=== PATIENT | male | born 1950 | race Caucasian/White ===

== ENCOUNTER 2022-03-29 04:31 | Inpatient (IN) | payer OTHER, SELFPAY ==
[2022-03-29 04:42] VITALS: BP 146/78; PULSE 77; RESP 16; TEMP 36.9; O2SAT 95
--- NOTE | 2022-03-29 05:11 | ED_ITS ---
HPI - General Adult General Date Seen: 03/29/22 Chief complaint: Abdominal Pain Stated complaint: Bowel obstruction Time Seen by Provider: 03/29/22 04:55 History of Present Illness HPI narrative: Patient is a 71-year-old male who began having abdominal pain yesterday. He has had numerous previous small-bowel obstructions in occluding two in the last 12 months. He presented to the hospital in [place] where he was fully evaluated. He required morphine for pain and had an NG-tube placed with over 1000 mL of fluid removed. He also received Zofran for nausea. There were no beds available in [place] or anywhere else in the [facility] so ER physician contacted our [facility] and we made arrangements to accept him in an ER to ER transfer for admission here. He had a negative COVID test. He has had no fevers or chills. There has been no black or bloody stools. No blood in his NG returns. He has had no cough, chest pain, shortness of breath. He has never required surgical treatment for his bowel obstructions. He has had previous chemotherapy and radiation therapy for his colon cancer. Home medications include Colace 100 mg q.h.s., Protonix 40 mg daily, sertraline 100 mg daily, Flomax 0.4 mg daily, trazodone 50 mg q.h.s., combigan eyedrops. Review of Systems Narrative: Review of systems is outlined above otherwise noted to be negative. [facility] Medical History (Updated 03/29/22 @ 05:26 by Kingsley Torres MD) Bladder cancer Generalized anxiety disorder Major depression, recurrent Nicotine dependence Radiation proctitis Rectal adenocarcinoma Recurrent kidney stones Surgical History (Updated 03/29/22 @ 05:10 by Kingsley Torres MD) History of colostomy History of urostomy Family History (Updated 03/29/22 @ 05:08 by Kingsley Torres MD) Father Prostate cancer Breast cancer Mother Alcohol dependence Drug dependence Liver disease Sister Pancreatic cancer Breast cancer Social History (Updated 03/29/22 @ 05:05 by Kingsley Torres MD) Narrative: , retired, smoker, no EtOH Smoking Status: Current every day smoker What tobacco products do you use: cigarettes Do you use any of these nicotine containing products: None Second hand tobacco smoke exposure: No Non-prescribed substance use: denies use service: No Exam Narrative: Exam Narrative: Vitals noted. I did re-examine him and confirmed his physical exam findings. His mouth is dry. NG tube is in place with continued returns. Heart is regular rate rhythm without murmur. Lungs are diminished but clear. No wheezes, rales, rhonchi. Abdomen is soft and silent. Mild diffuse tenderness but no guarding, rigidity, rebound. There is a colostomy present in the left lower quadrant. No pitting peripheral edema. No skin rashes. Const: Vital Signs, click to edit/add: Vital Signs - 24 hr 03/29/22 04:42 Temperature 98.4 F Pulse Rate [Left P ulse Oximeter] 77 Respiratory Rate 16 Blood Pressure [Ri ght Upper Arm] 146/78 H Pulse Oximetry 95 Oxygen Delivery Me thod Room Air Course Course Hospital Course: Patient is seen and evaluated. I did not repeat any diagnostic testing. Will contact [facility] for admission for IV fluids, bowel rest, NG suctioning, conserva tive care. Vital Signs Vital signs: Initial Vital Signs Temperature 98.4 F 03/29/22 04:42 Temperature Source Temporal Artery Scan 03/29/22 04:42 Pulse Rate 77 03/29/22 04:42 Respiratory Rate 16 03/29/22 04:42 Blood Pressure 146/78 H 03/29/22 04:42 Blood Pressure Mean 100 03/29/22 04:42 Blood Pressure Position Semi-Fowlers 03/29/22 04:42 Pulse Oximetry 95 03/29/22 04:42 Oxygen Delivery Method 03/29/22 04:42 Vital Signs Temperature 98.4 F 03/29/22 04:42 Pulse Rate 77 03/29/22 04:42 Respiratory Rate 16 03/29/22 04:42 Blood Pressure 146/78 H 03/29/22 04:42 Pulse Oximetry 95 03/29/22 04:42 Oxygen Delivery Method 03/29/22 04:42 Temperature 98.4 F 03/29/22 04:42 Pulse Rate 77 03/29/22 04:42 Respiratory Rate 16 03/29/22 04:42 Blood Pressure 146/78 H 03/29/22 04:42 Pulse Oximetry 95 03/29/22 04:42 Oxygen Delivery Method 03/29/22 04:42 Medical Decision Making Lab Data Labs: CBC shows a hemoglobin of 16, platelet count 296, white blood count 03479. CMP shows a potassium 4.4, sodium 130, chloride 100, bicarb 23, BUN 19, creatinine 1.0, calcium 10.3, glucose 131. LFTs are normal an ALT 14, AST 28, bilirubin 0.6, albumin 4.8. Lactate initially was 2.3. COVID negative. Diagnostics: CT of the abdomen with IV contrast shows findings of small-bowel obstruction with numerous dilated loops of small bowel with air-fluid levels, distension of the stomach, transition point in the pelvis, no perforation. CT angiogram of the chest is negative for pulmonary embolism. X-ray of the abdomen shows good position of the NG tube. Discharge Plan Discharge Clinical Impression: Small bowel obstruction Patient Disposition: Admitted As Inpatient Condition: Stable Follow Up/Referrals: Provider,Not a Local [Primary Care Provider] -
--- NOTE | 2022-03-29 05:59 | W.PC.EDHO ---
Primary Language: Preferred Language: Orientation Status: [x] Alert & Oriented [] Slight Confusion [] Known Dx Dementia Transfers By: [x] Assist of 1 [] Assist of 2 [] Lift Description of Symptoms ED Triage Present Problem Patient arrives via [facility] as an ER to ER Description transfer from [facility]. Patient has been transferred for admission to [facility] d/t SBO. Patient has h/o approx. 8 bowel obstructions in 2021. Patient has h/o colorectal ca and also has an ostomy placed. Patient is drowsy but awakens easily to voice. Patient c/o 5/10 pain. Patient has NG placed that was locked during transport. 250cc dark brown output into suction canister upon arrival to ED. 20g SL placed in L a/c by EMS. ED Triage Date of Onset of 03/28/22 Symptoms Female History Patient No Pain Pain Intensity [Abdomen] 5 Pain Intensity [Abdomen] 5 Pain Intensity 5 Pain Scale Used [Abdomen] Numeric (1 - 10) Pain Scale Used [Abdomen] Numeric (1 - 10) Pain Scale Used Numeric (1 - 10) IV Insertion/Site Date of IV Line Insertion [ 03/29/22 Antecubital] Oxygen Administration Pulse Oximetry 95 Oxygen Delivery Method Room Air
--- NOTE | 2022-03-29 06:00 | ED.NURSE ---
Report to HERMELINDA Arnold
[2022-03-29 06:35] VITALS: RESP 16; TEMP 36.7; O2SAT 95; BMI 18.9
--- NOTE | 2022-03-29 06:42 | PM.IMCN1 ---
Date of Consult Consult date: 03/29/22 Primary Care Provider: Not a Local Provider Consult Narrative Narrative: aMthieu Tate Hospitalist ADMISSION SUPPORT NOTE eHospitalist was contacted by Dr. Torres with request of admission support. Chief complaint: Abdominal pain and vomiting HPI: The patient presents as a transfer from the outlying facility with bowel obstruction. He reports that 2 PM on afternoon he started developing abdominal pain. He has had multiple small bowel obstructions in the past and try conservative management cutting back on eating however reports that the pain was severe. The pain was generalized in his abdomen due to radiated to his back and was sharp in his abdomen but dull in his back. Currently pain is 5/[address] scan of abdomen and pelvis reveals small bowel obstruction with distal point in the pelvis. Per report after NG tube was placed there was at least 1 L of gastric content removed and suctioning. Review of systems other than mentioned above is negative. Medications/Pertinent Medical History/Pertinent Social History: Reveiwed see EMR for details Review of Systems Status of ROS: Reports: 10 or more systems reviewed and unremarkable except as noted in History and below PFSH PFS Medical History (Updated 03/29/22 @ 05:26 by Kingsley Torres MD) Bladder cancer Generalized anxiety disorder Major depression, recurrent Nicotine dependence Radiation proctitis Rectal adenocarcinoma Recurrent kidney stones Surgical History (Updated 03/29/22 @ 05:10 by Kingsley Torres MD) History of colostomy History of urostomy Family History (Updated 03/29/22 @ 05:08 by Kingsley Torres MD) Father Prostate cancer Breast cancer Mother Alcohol dependence Drug dependence Liver disease Sister Pancreatic cancer Breast cancer Social History (Updated 03/29/22 @ 05:05 by Kingsley Torres MD) Narrative: , retired, smoker, no EtOH Smoking Status: Current every day smoker What tobacco products do you use: cigarettes Do you use any of these nicotine containing products: None Second hand tobacco smoke exposure: No Non-prescribed substance use: denies use service: No Meds Home Medications and Allergies Allergies Allergy/AdvReac Type Severity Reaction Status Date / Time No Known Drug Allergies Allergy Verified 03/29/22 05:58 Exam Narrative: Exam Narrative: Exam (performed via interactive video with assistance of bedside nurse): General: Alert, cooperative, no acute distress, thin HEENT: Oral mucosa pink and moist without erythema, ngt in nare Lungs: Clear to auscultation bilaterally without crackle or wheeze CV: Regular rate and rhythm without loud murmur rub or gallop Abd: Bowel sounds hypoactive, does exhibit signs of pain with palpation in RLQ done by bedside nurse, LLQ ostomy Ext: No pitting edema noted Skin: No rashes, bruises or lesions appreciated on gross visualization of exposed skin Neuro: Alert, oriented x 3. CN III -VII, XI, XII grossly intact, moves all extremities without any significant focal deficit appreciated by nurse Const: Vital Signs, click to edit/add: Vital Signs - 24 hr 03/29/22 04:42 Temperature 98.4 F Pulse Rate [Left P ulse Oximeter] 77 Respiratory Rate 16 Blood Pressure [Ri ght Upper Arm] 146/78 H Pulse Oximetry 95 Oxygen Delivery Me thod Room Air Assessment and Plan Assessment and plan (1) Small bowel obstruction: Status: Acute Plan Recent lab/CT scan of abdomen and pelvis/CTA of chest: Reviewed see EMR for details Assessment and Plan: 1. Small Bowel Obstruction-supportive care. NG tube to suction low intermittent, pain meds and antiemetics 2. Depression and anxiety-stable monitor 3. Smoking Habituation-nicotine patch 4. DVT prophylaxis-Lovenox 5. CODE STATUS Full Code per documentation Chart review was performed as well as evaluation of the patient via video. Thank you for involving ehospitalist. Please contact [phone] if further assistance is needed.
--- NOTE | 2022-03-29 07:44 | PC.NURSE ---
Pt alert and oriented x3, pleasant and cooperative. Afebrile. Pt reports pain in right shoulder, managed with PRN Oxycodone and scheduled Tylenol. Pt denies chest pain, and SOB. Pt reported nausea with some dry heaving, nausea was managed with PRN Zofran, but it was not effective. MD was updated, MD ordered PRN Compazine. Pt reported feeling better after receiving the Compazine.??Pt right shoulder dressing?is CDI but pt has black and purple bruise around and below the surgical site?that was outlined around 0230, the bruise has not exceeded outline during rest of shift. Pt is SBA with gait belt?to the bathroom. Pt was saline locked at 0500. Pt has had water and crackers and has been tolerating them with no nausea. ??
[2022-03-29 11:00] VITALS: BP 139/73; RESP 16; TEMP 36.8; O2SAT 93
[2022-03-29] MEDS: SODIUM CHLORIDE 0.9 % (FLUSH) 10 ML SYRINGE 5 ML IVF (11:28)
[2022-03-29] MEDS: LACTATED RINGERS 1000 ML 500 ML IV (11:29)
[2022-03-29] MEDS: MORPHINE 2 MG/ML inj IVP (11:37)
[2022-03-29 12:25] LABS: Lactate* 1.5 mmol/L (0.5-1.9)
[2022-03-29 12:28] LABS: Basophils Percent Auto 0.1 % (0.0-3.0); Eosinophils Percent Auto 0.1 % (0.0-7.0); Hematocrit 45.6 % (37.0-53.0); Hemoglobin* 15.4 gm/dL (13.5-17.5); Immature Granulocytes Pct Auto 0.1 %; Lymphocytes Percent Auto 8.6 % (20-44); Mean Corpuscular HGB Conc 34 gm/dL (32-36); Mean Corpuscular Hemoglobin 32 pg (26-34); Mean Corpuscular Volume 94 fL (80-100); Monocytes Percent Auto 6.3 % (0.0-11.0); Neutrophils Percent Auto 84.8 % (42.0-72.0); Platelet Count* 284 K/uL (140-440); Red Blood Count 4.84 m/uL (4.30-5.90); Slide Review Reflex No; White Blood Count* 14.59 K/uL (4.50-11.00)
[2022-03-29 12:53] LABS: Chloride* 105 mmol/L (96-114)
[2022-03-29 12:54] LABS: Potassium* 4.5 mmol/L (3.6-5.1); Sodium* 139 mmol/L (135-149)
[2022-03-29 12:56] LABS: Est. Creatinine Clearance* 57.94; Estimated Glomerular Filt Rate 81 ml/min
[2022-03-29 12:57] LABS: Alanine Aminotransferase* 17 U/L (4-50); Alkaline Phosphatase* 57 U/L (40-150); Aspartate Amino Transferase* 25 U/L (12-35); Bilirubin Total* 0.8 mg/dL (0.1-1.5); Blood Urea Nitrogen* 29 mg/dL (7-30); Calcium* 9.2 mg/dL (8.4-10.6); Carbon Dioxide* 29 mmol/L (20-32); Glucose* 121 mg/dL (60-115); Lipase* 20 U/L (23-300); Total Protein* 6.6 g/dL (6.0-8.3)
[2022-03-29 13:00] LABS: C Reactive Protein* 3.3 mg/dL (0.5-1.0)
--- NOTE | 2022-03-29 14:33 | P.GSCN_ITS ---
History of Present Illness Consult details Date Seen: 03/29/22 Consult date: 03/29/22 Narrative: The patient is a 71-year-old male with a history of rectal cancer status post abdominal perineal resection and pelvic radiation, bladder cancer status post transurethral resection, with a history of multiple small-bowel obstructions. The patient states that he presented to the [place] [facility] last evening because he developed fever, abdominal pain, and was unable to walk. Additionally, he was vomiting. There, a CT scan showed a right inguinal hernia as well as a small-bowel obstruction with transition port in the pelvis. An NG was placed in the emergency department and 1 L of fluid returned. He has been treated extensively within the [place] system and has been hospitalized in [place] before. There were no beds available to admit him and he was sent to [place]. He is still having some abdominal pain, but he is improved. Denies any groin pain. He has had approximately 15 bowel obstructions since his surgery. He states that 2 weeks ago he had similar symptoms but he was able to get past it on his own by limiting his diet and only drinking water. He is thirsty. The patient's surgical history is as follows: Workup for constipation and weight loss in 2018 revealed a mass near the bladder and involving the rectum. Colonoscopy revealed a rectal cancer 6 cm from the anal verge. He then underwent neoadjuvant radiation and chemotherapy and in 2018 and abdominal perineal resection. He developed a herniation at his perineal site and underwent repair a year later in 2019. This was done with mesh and an a pedicled omental flap. He has also had multiple cystoscopies and what sounds like a trans urethral bladder tumor resection. There was some question as to whether not he had a urostomy, however I do not see this on clinical exam nor in his records. He has had multiple cystoscopies as well as retrograde pyelograms for kidney stones as well as surveillance of this bladder tumor that was resected. [facility] Medical History (Updated 03/29/22 @ 14:39 by Buffy Escobar MD) Bladder cancer Generalized anxiety disorder Major depression, recurrent Nicotine dependence Pelvic irradiation Perineal hernia Radiation proctitis Rectal adenocarcinoma Recurrent kidney stones Surgical History (Updated 03/29/22 @ 14:39 by Buffy Escobar MD) H/O left knee surgery H/O lithotripsy H/O transurethral resection of bladder tumor (TURBT) History of colostomy S/P cystoscopy with ureteral stent placement Status post robot-assisted surgical procedure Family History (Updated 03/29/22 @ 05:08 by Kingsley Torres MD) Father Prostate cancer Breast cancer Mother Alcohol dependence Drug dependence Liver disease Sister Pancreatic cancer Breast cancer Social History (Updated 03/29/22 @ 05:05 by Kingsley Torres MD) Narrative: , retired, smoker, no EtOH Smoking Status: Current every day smoker What tobacco products do you use: cigarettes Smoking packs per day: 0.5 Smoking cigarettes per day: 10.0 Do you use any of these nicotine containing products: None Second hand tobacco smoke exposure: No How often do you have a drink containing alcohol: never AUDIT-C Alcohol total score: 0 Non-prescribed substance use: denies use Caffeine: Yes service: No Meds Home Medications and Allergies Home Medications Medication Instructions Recorded Confirmed Type acetaminophen 500 mg tablet 1,000 mg PO Q6H PRN 03/29/22 03/29/22 History brimonidine 0.2 %-timolol 0.5 % 1 drp ophthalmic (eye) DAILY 03/29/22 03/29/22 History eye drops (Combigan) docusate sodium 100 mg capsule 100 mg PO QHS 03/29/22 03/29/22 History (DOK) pantoprazole 40 mg tablet,delayed 40 mg PO DAILY 03/29/22 03/29/22 History release sertraline 100 mg tablet 100 mg PO DAILY 03/29/22 03/29/22 History tamsulosin 0.4 mg capsule 0.4 mg PO DAILY 03/29/22 03/29/22 History trazodone 50 mg tablet 50 mg PO HS 03/29/22 03/29/22 History Allergies Allergy/AdvReac Type Severity Reaction Status Date / Time bee venom protein (honey bee) AdvReac Unknown Verified 03/29/22 07:42 heprin AdvReac Unknown Uncoded 03/29/22 07:42 Exam Narrative: Exam Narrative: General appearance: Alert, cooperative, and in no distress HENT: NG in place with reddish fluid Pulmonary: Breathing nonlabored on room air Cardiovascular Heart: Regular rate and rhythm Gastrointestinal Abdominal: Mildly distended. No significant tenderness. No gas or stool in stoma bag. Stoma is patent past the fascia on digital exam. : Unable to palpate a hernia in the right groin or femoral region. Patient was not tender before the exam but was somewhat tender after the exam. Musculoskeletal: Extremities: Upper: Both upper extremities have normal joint range of motion and inta ct strength. Lower: Both lower extremities have normal joint range of motion and intact strength. Skin: Normal skin color, texture, and turgor. No rashes or lesions. Neurologic: No focal deficits Psychiatric: Alert, oriented, cooperative, normal affect. Const: Vital Signs, click to edit/add: Vital Signs - 24 hr 03/29/22 04:42 03/29/22 06:35 03/29/22 06:35 Temperature 98.4 F 98.1 F Pulse Rate [Left P ulse Oximeter] 77 Respiratory Rate 16 16 16 Blood Pressure [Ri ght Arm] Blood Pressure [Ri ght Upper Arm] 146/78 H Pulse Oximetry 95 95 95 Oxygen Delivery Me thod Room Air Room Air Room Air 03/29/22 11:00 Temperature 98.2 F Pulse Rate [Left P ulse Oximeter] Respiratory Rate 16 Blood Pressure [Ri ght Arm] 139/73 Blood Pressure [Ri ght Upper Arm] Pulse Oximetry 93 Oxygen Delivery Me thod Room Air Results Labs Labs: Abnormal lab results 03/29/22 03/29/22 Range/Units 12:13 12:13 WBC 14.59 H (4.50-11.00) K/uL Neut % (Auto) 84.8 H (42.0-72.0) % Lymph % (Auto) 8.6 L (20-44) % Neut # (Auto) 12.40 H (1.7-7.0) K/uL Glucose 121 H (60-115) mg/dL C-Reactive Protein 3.3 H (0.5-1.0) mg/dL Lipase 20 L (23-300) U/L Diabetes panel 03/29/22 Range/Units 12:13 Sodium 139 (135-149) mmol/L Potassium 4.5 (3.6-5.1) mmol/L Chloride 105 (96-114) mmol/L Carbon Dioxide 29 (20-32) mmol/L BUN 29 (7-30) mg/dL Creatinine 1.0 (0.5-1.5) mg/dL Glucose 121 H (60-115) mg/dL Calcium 9.2 (8.4-10.6) mg/dL AST 25 (12-35) U/L ALT 17 (4-50) U/L Alkaline Phosphatase 57 (40-150) U/L Total Protein 6.6 (6.0-8.3) g/dL Albumin 4.0 (3.3-5.0) g/dL Calcium panel 03/29/22 Range/Units 12:13 Calcium 9.2 (8.4-10.6) mg/dL Albumin 4.0 (3.3-5.0) g/dL Pituitary panel 03/29/22 Range/Units 12:13 Sodium 139 (135-149) mmol/L Potassium 4.5 (3.6-5.1) mmol/L Chloride 105 (96-114) mmol/L Carbon Dioxide 29 (20-32) mmol/L BUN 29 (7-30) mg/dL Creatinine 1.0 (0.5-1.5) mg/dL Glucose 121 H (60-115) mg/dL Calcium 9.2 (8.4-10.6) mg/dL Adrenal panel 03/29/22 Range/Units 12:13 Sodium 139 (135-149) mmol/L Potassium 4.5 (3.6-5.1) mmol/L Chloride 105 (96-114) mmol/L Carbon Dioxide 29 (20-32) mmol/L BUN 29 (7-30) mg/dL Creatinine 1.0 (0.5-1.5) mg/dL Glucose 121 H (60-115) mg/dL Calcium 9.2 (8.4-10.6) mg/dL Total Bilirubin 0.8 (0.1-1.5) mg/dL AST 25 (12-35) U/L ALT 17 (4-50) U/L Alkaline Phosphatase 57 (40-150) U/L Total Protein 6.6 (6.0-8.3) g/dL Albumin 4.0 (3.3-5.0) g/dL All other labs normal. Imaging Abdomen CT scan report/results: report reviewed and image reviewed Additional studies: The patient's CT scan done in [place] was reviewed by myself and with the radiologist. The patient has a small-bowel obstruction but there appears as though there was decompressed small bowel in the pelvis which makes this likely adhesive in nature. He does have a right inguinal hernia which actually appears as though perhaps it is a femoral hernia. There is some colon which is stuck in here. This does not appear to be obstructing. There is no inflammatory changes in this area. The radiology read states that there are ?numerous loops of dilated small bowel containing air-fluid levels with transition point to normal caliber small bowel in the mid low pelvis. The stomach is distended, containing gas and fluid with a small volume of fluid in the distal esophagus. Left lower quadrant ostomy. Normal caliber loop of bowel extends into a right inguinal hernia without associated wall thickening or fluid. The appendix is not well delineated. No ascites or pneumoperitoneum. Assessment and Plan Assessment and plan (1) Small bowel obstruction: Status: Acute (2) Nicotine dependence: Status: Acute Plan The patient is a 71-year-old male with multiple recurrent small bowel obstructions. This is a very complicated patient because of his history of APR, history of pelvic radiation, perineal hernia and reconstruction with mesh and omental flap. If he would require surgery, this would be likely very difficult and high risk given his history. Fortunately he is feeling better after the NG tube has been placed. Continue conservative management at this point. If he does not resolve, consideration should be had for transfer to tertiary center given that he likely has a very difficult operative pelvis and is at high risk for surgical complication for this reason. I suggested to him that if this obstruction does resolve, I recommended that he follow-up with his surgeons at [place] as an outpatient given the frequency of these obstructions.
[2022-03-29 15:00] VITALS: BP 106/71; RESP 16; TEMP 36.6; O2SAT 95
--- NOTE | 2022-03-29 15:41 | PM.IMHP1 ---
Hospitalist- H&P: HPI History of Present Illness Time Seen by Provider: 10:00 Date Seen: 03/29/22 Chief complaint: Bowel obstruction, recurrent Narrative: Asaf Gutierrez is a 71 year old man presents as the emergency department referral from [facility] to the emergency department at [facility] for further assessment and management of small-bowel obstruction. Found to have rectal cancer about 4-5 years ago. Underwent resection and diverting colostomy. Also received adjuvant chemotherapy and radiation therapy for the same. Had bladder cancer. Has had multiple procedures for the same. In his records there is mention of urostomy at 1 time. Has had recurrent small-bowel obstructions. He believes he has had at least 15 episodes. He tells me the last episode he has was about 2 weeks ago which he treated at home with hydration and elimination of solid foods. Presented to the emergency department at the [facility] yesterday with abdominal pain nausea and vomiting. He states it felt the same as prior episodes of bowel obstruction. CT scan of abdomen and pelvis obtained demonstrating small bowel obstruction, numerous loops of dilated small bowel containing air-fluid levels and distension of the stomach with a transition point in the pelvis with no evidence of perforation. Reportedly there are no beds available in the [facility], or any of the other [facility]. Our emergency department physician Dr. Kingsley Torres was contacted and accepted the patient in transfer for further assessment. Dr. Torres agreed that patient does indeed have small-bowel obstruction. He contacted the available [facility] hospitalist service, JASMIN, who then admitted the patient to the hospital. At no time was a general surgeon consulted prior to arriving here, when he was in the emergency department, or after arrival to the hospital floor. An NG-tube was placed before arriving to the [facility], attached to suction and reportedly with feculant material was suctioned and filled 2 containers. Patient feels better with NG tube in place now. Abdominal discomfort still present but less problematic than previously. Nausea much improved. Review of Systems Status of ROS: Reports: 10 or more systems reviewed and unremarkable except as noted in History and below Narrative: He worries about eating for fear that it might cause a bowel obstruction. Acknowledge he does not eat sufficiently to make his metabolic needs. Has lost a significant amount of weight. He tells me his lowest weight was about 125 lb. He tells me his current weight is about 130 lb. Indeed on our scale he weighs roughly 59.6 kg or 131 lb. Denies blood loss of any sort. Denies trauma, injury, travel. Has not had flatus or bowel movement for a while. Abdominal distension is decreased with NG tube in. Still smoking roughly a half pack per day. Lives alone. Son lives next door. He is . Retired. No fevers, rigors, diaphoresis. Denies chest heaviness, pressure, tightness, or pain. Denies syncope or near-syncope. Denies dyspnea at rest, paroxysmal nocturnal dyspnea, orthopnea. Baseline chronic hacky cough. Usually cares for his own ostomy. Tells me does not have a urostomy. [facility] Medical History (Updated 03/29/22 @ 16:01 by Elvis Martin MD) Bladder cancer Colostomy care Generalized anxiety disorder History of bladder cancer History of radiation therapy History of small bowel obstruction Hypoalbuminemia Insomnia Major depression, recurrent Nicotine dependence Pelvic irradiation Perineal hernia Protein-calorie malnutrition, moderate Radiation proctitis Rectal adenocarcinoma Recurrent kidney stones Surgical History (Updated 03/29/22 @ 16:01 by Elvis Martin MD) H/O left knee surgery H/O lithotripsy H/O resection of small bowel H/O transurethral resection of bladder tumor (TURBT) History of colostomy History of urostomy S/P cystoscopy with ureteral stent placement Status post colostomy Status post robot-assisted surgical procedure Family History Father Prostate cancer Breast cancer Mother Alcohol dependence Drug dependence Liver disease Sister Pancreatic cancer Breast cancer Social History Narrative: , retired, smoker, no EtOH Smoking Status: Current every day smoker What tobacco products do you use: cigarettes Smoking packs per day: 0.5 Smoking cigarettes per day: 10.0 Do you use any of these nicotine containing products: None Second hand tobacco smoke exposure: No How often do you have a drink containing alcohol: never AUDIT-C Alcohol total score: 0 Non-prescribed substance use: denies use Caffeine: Yes service: No Meds Home Medications and Allergies Home Medications Medication Instructions Recorded Confirmed Type acetaminophen 500 mg tablet 1,000 mg PO Q6H PRN 03/29/22 03/29/22 History brimonidine 0.2 %-timolol 0.5 % 1 drp ophthalmic (eye) DAILY 03/29/22 03/29/22 History eye drops (Combigan) docusate sodium 100 mg capsule 100 mg PO QHS 03/29/22 03/29/22 History (DOK) pantoprazole 40 mg tablet,delayed 40 mg PO DAILY 03/29/22 03/29/22 History release sertraline 100 mg tablet 100 mg PO DAILY 03/29/22 03/29/22 History tamsulosin 0.4 mg capsule 0.4 mg PO DAILY 03/29/22 03/29/22 History trazodone 50 mg tablet 50 mg PO HS 03/29/22 03/29/22 History Allergies Allergy/AdvReac Type Severity Reaction Status Date / Time bee venom protein (honey bee) AdvReac Unknown Verified 03/29/22 07:42 heprin AdvReac Unknown Uncoded 03/29/22 07:42 Exam Narrative: Exam Narrative: No acute distress. Appears comfortable. Appears anxious, appropriately. NG tube in place with dark material being suctioned. Vision and hearing are grossly normal. Alert, oriented to self, place, time, situation. Reserved but cooperative. Mood and affect are congruent. Lungs with fine end inspiratory rales bibasilarly. No wheezing or rhonchi. Heart tones with regular rhythm, normal S1-S2. Thin abdomen. Quiet. Distended, mildly. Subjective discomfort to palpation without rebound or guarding. Independent transfer, station, gait. No tremor, asterixis, or ataxia. Moves all 4 extremities. No focal neurologic deficits. Const: Vital Signs, click to edit/add: Vital Signs - 24 hr 03/29/22 04:42 03/29/22 06:35 03/29/22 06:35 Temperature 98.4 F 98.1 F Pulse Rate [Left P ulse Oximeter] 77 Respiratory Rate 16 16 16 Blood Pressure [Ri ght Arm] Blood Pressure [Ri ght Upper Arm] 146/78 H Pulse Oximetry 95 95 95 Oxygen Delivery Me thod Room Air Room Air Room Air 03/29/22 11:00 Temperature 98.2 F Pulse Rate [Left P ulse Oximeter] Respiratory Rate 16 Blood Pressure [Ri ght Arm] 139/73 Blood Pressure [Ri ght Upper Arm] Pulse Oximetry 93 Oxygen Delivery Me thod Room Air Documenting provider has reviewed patient's vital signs: yes Hospitalist - H&P: Result Labs Labs: Short CBC 03/29/22 Range/Units 12:13 WBC 14.59 H (4.50-11.00) K/uL Hgb 15.4 (13.5-17.5) gm/dL Hct 45.6 (37.0-53.0) % Plt Count 284 (140-440) K/uL BMP 03/29/22 12:13 Sodium 139 Potassium 4.5 Chloride 105 Carbon Dioxide 29 BUN 29 Creatinine 1.0 Glucose 121 H Calcium 9.2 Liver Function 03/29/22 Range/Units 12:13 Total Bilirubin 0.8 (0.1-1.5) mg/dL AST 25 (12-35) U/L ALT 17 (4-50) U/L Alkaline Phosphatase 57 (40-150) U/L Albumin 4.0 (3.3-5.0) g/dL Imaging CT scan - abdomen: Radiologist's impression: Outside CT yesterday demonstrates SBO with pelvis transition. Assessment and Plan Assessment and plan (1) Small bowel obstruction: Status: Acute (2) Rectal adenocarcinoma: Status: Acute (3) Status post robot-assisted surgical procedure: Problem comment: Abdominal perineal resection for rectal cancer Status: Acute (4) Colostomy care: Status: Acute (5) History of radiation therapy: Status: Acute (6) History of bladder cancer: Status: Acute (7) H/O resection of small bowel: Status: Acute (8) Generalized anxiety disorder: Status: Acute (9) Nicotine dependence: Status: Acute Plan 1. Reviewed impression with patient. 2. Consulted with our general surgeon, Dr. Escobar, who will follow the patient with us. 3. IV fluids. Analgesics and antiemetics p.r.n.. Continue with NG tube for now. Obtain more outside medical records. 4. Should this patient require surgery, the patient would do well to have surgery at a tertiary medical center given the complexity of his past medical history including multiple surgeries and colostomy, pelvic radiation therapy, prior small-bowel resection, possible history of urostomy. 5. Nicotine supplementation with patch and inhaler as needed. 6. Monitor labs closely. 7. Answered patient's questions to satisfaction. 8. Consider PPN if need be. 9. Patient agreeable to above stated plans and recommendations.
[2022-03-29] MEDS: 0.9 % SODIUM CH + KCL 20 mEq/L 1,000 ML 100 ML IV ×2 (16:03→21:23)
--- NOTE | 2022-03-29 19:29 | PC.NURSE ---
Patient rating pain at a 5-6/10 in his abdomen. States that it is tender. Morphine given x1 this shift. Denies any nausea. NG remains in place to left nare with 275 mL of output on day shift. Pt is NPO with sips and chips. Nurse encouraged patient to get up for walk in the [place] and patient refused.
[2022-03-29 19:30] VITALS: BP 166/84; RESP 18; TEMP 36.7; O2SAT 94
[2022-03-29 23:06] VITALS: BP 166/94; RESP 20; TEMP 37.1; O2SAT 95
[2022-03-30 03:30] VITALS: BP 164/96; RESP 18; TEMP 37.2; O2SAT 94
--- NOTE | 2022-03-30 05:00 | PC.NURSE ---
Addendum entered by Liberty Pena RN 03/30/22 06:38: This morning patient c/o NG tube and Wants it out today! Patient emptied moderate amount of soft-loose light brown stool into toilet this am. Payroll Representative encouraged ambulation in the halls but patient refused. Original Note: [id number]: Patient cooperative with cares. Rates pain 3-4/10. Declined pain medication. Tolerating ice chips. NG patent. SBA to BR. Passing gas into ostomy bag. BS hypoactive.
[2022-03-30] MEDS: 0.9 % SODIUM CH + KCL 20 mEq/L 1,000 ML 100 ML IV (06:13)
[2022-03-30 07:00] VITALS: BP 117/78; PULSE 80; RESP 18; TEMP 37; O2SAT 94
[2022-03-30 08:11] LABS: Hematocrit 41.2 % (37.0-53.0); Hemoglobin* 13.9 gm/dL (13.5-17.5); Mean Corpuscular HGB Conc 34 gm/dL (32-36); Mean Corpuscular Hemoglobin 32 pg (26-34); Mean Corpuscular Volume 96 fL (80-100); Platelet Count* 232 K/uL (140-440); Red Blood Count 4.29 m/uL (4.30-5.90)
[2022-03-30 08:17] LABS: Slide Review Reflex No
[2022-03-30 08:41] LABS: Chloride* 107 mmol/L (96-114); Sodium* 141 mmol/L (135-149)
[2022-03-30 08:42] LABS: Potassium* 3.9 mmol/L (3.6-5.1)
[2022-03-30 08:44] LABS: Carbon Dioxide* 30 mmol/L (20-32); Creatinine* 0.8 mg/dL (0.5-1.5); Est. Creatinine Clearance* 57.94; Estimated Glomerular Filt Rate 95 ml/min
[2022-03-30 08:45] LABS: Blood Urea Nitrogen* 24 mg/dL (7-30); Calcium* 8.5 mg/dL (8.4-10.6); Glucose* 101 mg/dL (60-115)
[2022-03-30 08:48] LABS: C Reactive Protein* 6.1 mg/dL (0.5-1.0)
[2022-03-30 11:00] VITALS: BP 109/72; PULSE 76; RESP 18; TEMP 36.9; O2SAT 94
--- NOTE | 2022-03-30 11:51 | P.GSPN_ITS ---
Subjective Subjective Date Seen: 03/30/22 Interval history: Asaf began having output from his stoma and so his NG tube was removed and he is on clear diet. He feels much better today. He states that he was supposed to have surgery to lyse adhesions in his abdomen at [place] on March 12 but this was canceled because it was considered elective in Medicare would not cover it. Exam Narrative: Exam Narrative: General: No acute distress CV: Regular rate and rhythm Abdomen: Nontender. Gas and stool in stoma bag. No hernia noted in right groin Const: Vital Signs, click to edit/add: Vital Signs - 24 hr 03/29/22 15:00 03/29/22 15:00 03/29/22 19:30 Temperature 97.9 F 98.1 F Pulse Rate [Pulse Oximeter] Respiratory Rate 16 16 18 Blood Pressure [Ri ght Arm] 106/71 166/84 H Pulse Oximetry 95 94 Oxygen Delivery Me thod Room Air Room Air 03/29/22 23:06 03/30/22 03:30 03/30/22 07:00 Temperature 98.7 F 99.0 F 98.6 F Pulse Rate [Pulse Oximeter] 80 Respiratory Rate 20 18 18 Blood Pressure [Ri ght Arm] 166/94 H 164/96 H 117/78 Pulse Oximetry 95 94 94 Oxygen Delivery Me thod Room Air Room Air Room Air 03/30/22 07:00 03/30/22 11:00 Temperature 98.4 F Pulse Rate [Pulse Oximeter] 80 76 Respiratory Rate 18 18 Blood Pressure [Ri ght Arm] 109/72 Pulse Oximetry 94 Oxygen Delivery Me thod Room Air Progress Note: A&P Assessment and plan (1) H/O resection of small bowel: Status: Acute (2) History of radiation therapy: Status: Acute (3) History of bladder cancer: Status: Acute (4) Status post robot-assisted surgical procedure: Problem details: Abdominal perineal resection for rectal cancer Status: Acute (5) Small bowel obstruction: Status: Acute (6) Bladder cancer: Status: Acute Plan The patient is a 71-year-old male with a complicated abdominal surgical history who has recurrent small-bowel obstructions. He peers to have resolved this time. He and I discussed that he is high risk for surgery, however because of the recurrent nature of his obstructions consideration should be had for lysis of adhesions. I would recommend this be done at a tertiary center. I expect that they may be hesitant there is well to reoperate on this gentleman, however if he continues to have obstructions then this may be necessary. He says that he was supposed to have surgery, however I am not sure if this was truly lysis of adhesions or if this was related to his bladder cancer and something such as a repeat cystoscopy. Regardless he is doing much better. We will advance his diet as tolerated. He would like to discharge today this is reasonable as long as he is able to tolerate a diet.
[2022-03-30 15:00] VITALS: TEMP 36.1
--- NOTE | 2022-03-30 17:06 | PM.DS1 ---
DS: Providers Provider Date Seen: 03/30/22 Date of admission: 03/29/22 06:09 Primary care physician: Not a Local Provider Admitting Clinician: Marvin Mandel MD Attending Physician on discharge: Marvin Mandel MD Date of Discharge: 03/30/22 DS: Diagnosis Discharge Diagnosis (1) Small bowel obstruction: Status: Acute Problem details: 71-year-old male with recurrent small-bowel obstruction secondary to history of rectal adenocarcinoma, bladder cancer, radiation therapy, small-bowel resection. Patient treated conservatively with NG tube and IV fluids. Overnight symptoms have resolved and he has passing gas and stool into his colostomy bag. (2) Rectal adenocarcinoma: Status: Acute (3) Bladder cancer: Status: Acute (4) History of radiation therapy: Status: Acute (5) H/O resection of small bowel: Status: Acute DS: Summary Hospital Course Hospital Course: 71-year-old male admitted to the hospital with recurrent small-bowel obstruction. Patient reports history of recurrent small-bowel obstructions subsequent to previous rectal adenocarcinoma, colostomy placement, bladder cancer, pelvic radiation, small-bowel resection. He was treated in the hospital with NG suctioning in IV fluids. Overnight his symptoms have resolved and he has evidence of antegrade bowel function. NG tube has been removed and he has been advanced to a liquid diet which he has tolerated well. Status at Discharge Functional status at discharge: independent ambulation Overall status at discharge: patient is back to baseline Time Spent with Patient Time attestation: Total time spent providing and/or coordinating discharge services: Time spent: Greater than 30 minutes Exam Narrative: Exam Narrative: Patient is seen earlier this morning and then again this afternoon. On both occasions he is alert and appears in no distress. Bowel sounds are active. Abdomen is soft and flat and nontender. Colostomy bag has gas and stool present. Extremities without edema. Const: Vital Signs, click to edit/add: Vital Signs - 24 hr 03/29/22 19:30 03/29/22 23:06 03/30/22 03:30 Temperature 98.1 F 98.7 F 99.0 F Pulse Rate [Pulse Oximeter] Respiratory Rate 18 20 18 Blood Pressure [Ri ght Arm] 166/84 H 166/94 H 164/96 H Pulse Oximetry 94 95 94 Oxygen Delivery Me thod Room Air Room Air Room Air 03/30/22 07:00 03/30/22 07:00 03/30/22 11:00 Temperature 98.6 F 98.4 F Pulse Rate [Pulse Oximeter] 80 80 76 Respiratory Rate 18 18 18 Blood Pressure [Ri ght Arm] 117/78 109/72 Pulse Oximetry 94 94 Oxygen Delivery Me thod Room Air Room Air Documenting provider has reviewed patient's vital signs: yes DS: Data Data Completed and Pending Labs on day of discharge: Labs from last 24 hours 03/30/22 03/30/22 08:00 08:00 WBC 9.40 RBC 4.29 L Hgb 13.9 Hct 41.2 MCV 96 MCH 32 MCHC 34 Plt Count 232 Sodium 141 Potassium 3.9 Chloride 107 Carbon Dioxide 30 BUN 24 Creatinine 0.8 Estimated Creat Clear 57.94 Estimated GFR 95 Glucose 101 Calcium 8.5 C-Reactive Protein 6.1 H Discharge Plan Discharge Disposition: Home, Self-Care Date of Admission: 03/29/22 06:09 Attending Provider on Discharge: Tab Landry Primary Care Provider: Provider,Not a Local Condition: Stable Anticipated Discharge Date/Time: 03/30/22 15:22 Discharge Medications: Continued pantoprazole 40 mg tablet,delayed release (DR/EC) 40 mg PO DAILY sertraline 100 mg tablet 100 mg PO DAILY acetaminophen 500 mg tablet 1,000 mg PO Q6H PRN docusate sodium [DOK] 100 mg capsule 100 mg PO QHS tamsulosin 0.4 mg capsule 0.4 mg PO DAILY trazodone 50 mg tablet 50 mg PO HS brimonidine-timolol [Combigan] 0.2-0.5 % drops 1 drp ophthalmic (eye) DAILY Rx Instructions: both eyes Discharge Orders: Discharge Order (Routine); Ordered 03/30/22 Ordered By: Tab Landry Patient Education: Bowel Obstruction (DC) Additional Instructions: See year [facility] doctors as previously scheduled for follow-up. Activity Level: Activity as Tolerated Diet Detail: advance diet from full liquids to regular diet as tolerated Follow Up Appointments: Provider,Not a Local [Primary Care Provider] - (Keep your previously scheduled appointment with your [place] doctors. ) Forms: [employer] Info Instructions
--- NOTE | 2022-03-30 17:12 | ONC.NURNOTE ---
alert and oriented. vs wnl. denies pain or discomfort or nausea. passing stool and flatus. nisa full liq. discharged to home with son.1600.
== END 2022-03-30 16:30 | disposition home or self-care (01) | DRG 389 ==
LOC: ED 05:26 → MEDSURG 06:10
PROVIDERS: Internal Medicine; Admitting Provider Hospitalist; Emergency Provider Family Medicine; Visit Provider Hospitalist
DX: K56.609 Unspecified intestinal obstruction, unspecified as to partial versus complete obstruction (principal); C20 Malignant neoplasm of rectum; F41.1 Generalized anxiety disorder; C67.9 Malignant neoplasm of bladder, unspecified; F17.210 Nicotine dependence, cigarettes, uncomplicated; Z43.3 Encounter for attention to colostomy; Z90.49 Acquired absence of other specified parts of digestive tract; Z85.51 Personal history of malignant neoplasm of bladder; Z92.3 Personal history of irradiation
CPT/HCPCS: 36415; 80048; 80053; 83605; 83690; 85025; 85027; 86140; 99281; 99285; J2270; J7120